=== PATIENT | female | born 1965 | race Caucasian/White ===

== ENCOUNTER 2017-03-25 16:30 | Emergency (ER) | payer BC ==
[2017-03-25 16:58] VITALS: BP 122/67; PULSE 93; RESP 20; TEMP 98.5; O2SAT 95
--- NOTE | 2017-03-25 19:36 | PD ---
HPI Chief Complaint: Abdominal Pain Time Seen by Provider: 19:25 Travel History International Travel<30 days: No Contact w/Intl Traveler<30days: No Traveled to known affect area: No History of Present Illness HPI Patient is a 51-year-old female complaining of right upper quadrant pain that is a constant squeezing feeling that started 24 hours ago. Is associated with vomiting. She took nothing for the pain. She reports having history of having similar symptoms a year ago had a HIDA scan had multiple workups and nothing was ever found. Her main complaint is constant right upper quadrant squeezing constant pain. She has not seen another doctor for this. And she did not take anything for her symptoms. She has a history of hypertension she is on Diovan/ Hydrocort thiazide. Patient also reports that she had endometrial ablation years ago. Has dysuria or any other complaint except for the squeezing constant pain in the right upper quadrant as well as the vomiting however today she was able to tolerate by mouth. PFSH Social History Tobacco Use: No Allergies-Medications (Allergen,Severity, Reaction): Coded Allergies: Iodinated Contrast- Oral and IV Dye (Verified Allergy, Severe, 03/25/17) nickel (Verified Allergy, Unknown, 03/25/17) polyvinyl chloride (PVC) (Verified Allergy, Unknown, 03/25/17) wool (Verified Allergy, Unknown, 03/25/17) Uncoded Allergies: ANTIINFLAMMATORIES (Allergy, Unknown, 03/25/17) Reported Meds & Prescriptions Reported Meds & Active Scripts Active Potassium Chloride ER (Potassium Chloride) 20 Meq Tab 20 Meq PO BID Flexeril (Cyclobenzaprine HCl) 10 Mg Tab 10 Mg PO BID Tramadol (Tramadol HCl) 50 Mg Tab 50 Mg PO Q6H PRN Reported Diovan Hct (Valsartan-Hydrochlorothiazide) 160-25 Mg Tab 1 Tab PO DAILY Tylenol-Codeine #3 (Acetaminophen-Codeine) 300-30 mg Tab 1 Tab PO Q4H PRN Baclofen 10 Mg Tab 10 Mg PO DAILY Diovan Hct (Valsartan-Hydrochlorothiazide) 160-25 Mg Tab 1 Tab PO DAILY Amoxicillin 500 Mg Tab 500 Mg PO BID Review of Systems Except as stated in HPI: all other systems reviewed are Neg Gastrointestinal: Positive: Abdominal Pain Musculoskeletal: Positive: Other (back pain) Physical Exam Narrative GENERAL: Awake alert nontoxic appearing nonjaundiced appearing in no distress SKIN: Warm and dry. HEAD: Atraumatic. Normocephalic. EYES: Pupils equal and round. No scleral icterus. No injection or drainage. ENT: No nasal bleeding or discharge. Mucous membranes pink and moist. NECK: Trachea midline. No JVD. CARDIOVASCULAR: Regular rate and rhythm. RESPIRATORY: No accessory muscle use. Clear to auscultation. Breath sounds equal bilaterally. GASTROINTESTINAL: Abdomen positive right upper quadrant tender, nondistended. Hepatic and splenic margins not palpable. MUSCULOSKELETAL: Extremities without clubbing, cyanosis, or edema. No obvious deformities. Back. She has focal tenderness on her paraspinal thoracic spine area around T 10 on the right side. She does not have CVA tenderness with percussion but very focal muscular-like pain on the right paraspinal thoracic area NEUROLOGICAL: Awake and alert. No obvious cranial nerve deficits. Motor grossly within normal limits. Five out of 5 muscle strength in the arms and legs. Normal speech. PSYCHIATRIC: Appropriate mood and affect; insight and judgment normal. Data Data Last Documented VS Vital Signs Date Time Temp Pulse Resp B/P (MAP) Pulse Ox O2 Delivery O2 Flow Rate FiO2 03/25/17 22:53 90 20 124/85 (98) 98 03/25/17 19:47 97.8 Room Air Orders Orders Urinalysis - C+S If Indicated (03/25/17 17:02) Complete Blood Count With Diff (03/25/17 19:36) Comprehensive Metabolic Panel (03/25/17 19:36) Lipase (03/25/17 19:36) Ketorolac Inj (Toradol Inj) (03/25/17 19:45) Diazepam (Valium) (03/25/17 20:30) Tramadol (Ultram) (03/25/17 20:30) Potassium Chloride (Kcl) (03/25/17 21:30) Potassium Chloride (Kcl) (03/25/17 21:30) Labs Laboratory Tests Test 03/25/17 20:18 03/25/17 20:44 White Blood Count 8.4 TH/MM3 Red Blood Count 4.36 MIL/MM3 Hemoglobin 11.9 GM/DL Hematocrit 36.7 % Mean Corpuscular Volume 84.3 FL Mean Corpuscular Hemoglobin 27.2 PG Mean Corpuscular Hemoglobin Concent 32.3 % Red Cell Distribution Width 12.6 % Platelet Count 399 TH/MM3 Mean Platelet Volume 7.7 FL Neutrophils (%) (Auto) 52.7 % Lymphocytes (%) (Auto) 36.8 % Monocytes (%) (Auto) 7.2 % Eosinophils (%) (Auto) 2.5 % Basophils (%) (Auto) 0.8 % Neutrophils # (Auto) 4.4 TH/MM3 Lymphocytes # (Auto) 3.1 TH/MM3 Monocytes # (Auto) 0.6 TH/MM3 Eosinophils # (Auto) 0.2 TH/MM3 Basophils # (Auto) 0.1 TH/MM3 CBC Comment DIFF FINAL Differential Comment Blood Urea Nitrogen 22 MG/DL Creatinine 0.79 MG/DL Random Glucose 127 MG/DL Total Protein 7.0 GM/DL Albumin 3.5 GM/DL Calcium Level 8.8 MG/DL Alkaline Phosphatase 100 U/L Aspartate Amino Transf (AST/SGOT) 26 U/L Alanine Aminotransferase (ALT/SGPT) 50 U/L Total Bilirubin 0.4 MG/DL Sodium Level 139 MEQ/L Potassium Level 2.9 MEQ/L Chloride Level 102 MEQ/L Carbon Dioxide Level 29.9 MEQ/L Anion Gap 7 MEQ/L Estimat Glomerular Filtration Rate 76 ML/MIN Lipase 150 U/L Urine Color YELLOW Urine Turbidity CLEAR Urine pH 6.0 Urine Specific [place] 1.021 Urine Protein NEG mg/dL Urine Glucose (UA) NEG mg/dL Urine Ketones NEG mg/dL Urine Occult Blood NEG Urine Nitrite NEG Urine Bilirubin NEG Urine Leukocyte Esterase NEG Urine WBC 0-2 /hpf Urine Squamous Epithelial Cells 0-5 /hpf Microscopic Urinalysis Comment CULT NOT INDICATED MDM Medical Decision Making Medical Screen Exam Complete: Yes Emergency Medical Condition: Yes Differential Diagnosis Patient complains of right upper quadrant pain which could be gallstones could be gastritis could be kidney stone could be muscle spasm could be nerve radiculopathy other Narrative Course Bedside sonogram [id number] done by this Ulises shows no gallstones she has a negative Colón's do not see gallstones I do not see any pericholecystic fluid Procedures Procedure Narrative Point of care bedside ultrasound shows no gallstones no pericholecystic fluid no signs of cholecystitis normal CBD as well as normal appearing gallbladder Diagnosis Primary Impression: Muscle spasm Additional Impressions: Right upper quadrant pain Hypokalemia Patient Instructions: Abdominal Pain (ED), General Instructions Scripts Potassium Chloride ER (Potassium Chloride ER) 20 Meq Tab 20 MEQ PO BID for Electrolyte Replacement, #20 TAB 0 Refills Prov: Daryn Howell MD 03/25/17 Cyclobenzaprine (Flexeril) 10 Mg Tab 10 MG PO BID for Muscle Spasm, #10 TAB 0 Refills Prov: Daryn Howell MD 03/25/17 Tramadol (Tramadol) 50 Mg Tab 50 MG PO Q6H Y for PAIN, #10 TAB 0 Refills Prov: Daryn Howell MD 03/25/17 Condition: Good Daryn Howell MD Mar 25, 2017 19:36
[2017-03-25] MEDS ORDERED: KETOROLAC TROMETHAMINE 60 MG/2 ML (IM) VIAL IM ONE (19:45)
[2017-03-25 19:47] VITALS: BP 119/73; PULSE 80; RESP 16; TEMP 97.8; O2SAT 100
[2017-03-25] MEDS ORDERED: TYLETAB34 PO (20:01)
[2017-03-25] MEDS ORDERED: DIOV160T9 PO (20:01)
[2017-03-25] MEDS ORDERED: AMOX500T PO (20:01)
[2017-03-25] MEDS ORDERED: BACL10TA PO (20:01)
[2017-03-25 20:29] LABS: AUTOMATED NEUTROPHIL # 4.4 TH/MM3 (1.8-7.7); BASOPHIL # 0.1 TH/MM3 (0-0.2); BASOPHIL % 0.8 % (0.0-2.0); EOSINOPHIL # 0.2 TH/MM3 (0-0.4); EOSINOPHIL % 2.5 % (0.0-4.0); HEMATOCRIT 36.7 % (35.0-46.0); HEMOGLOBIN 11.9 GM/DL (11.6-15.3); LYMPH % 36.8 % (9.0-44.0); LYMPHOCYTE # 3.1 TH/MM3 (1.0-4.8); MEAN CELL VOLUME 84.3 FL (80.0-100.0); MEAN CORPUSCULAR HEMOGLOBIN 27.2 PG (27.0-34.0); MEAN CORPUSCULAR HGB CONC 32.3 % (32.0-36.0); MEAN PLATELET VOLUME 7.7 FL (7.0-11.0); MONO % 7.2 % (0.0-8.0); MONOCYTE # 0.6 TH/MM3 (0-0.9); NEUT % 52.7 % (16.0-70.0); PLATELET COUNT 399 TH/MM3 (150-450); RED BLOOD COUNT 4.36 MIL/MM3 (4.00-5.30); RED CELL DISTRIBUTION WIDTH 12.6 % (11.6-17.2); WHITE BLOOD COUNT 8.4 TH/MM3 (4.0-11.0)
[2017-03-25] MEDS ORDERED: traMADol HCL 50 MG TAB PO ONE (20:30)
[2017-03-25] MEDS ORDERED: DIAZEPAM 5 MG TAB PO ONE (20:30)
[2017-03-25] MEDS ORDERED: CYCL10TA PO (20:42)
[2017-03-25] MEDS ORDERED: TRAM50TA PO (20:42)
[2017-03-25 20:49] LABS: BILIRUBIN, URINE NEG (NEG); BLOOD, URINE NEG (NEG); GLUCOSE,URINE NEG (NEG); KETONE, URINE NEG (NEG); NITRITE,URINE NEG (NEG); URINE LEUKOCYTE ESTERASE NEG (NEG)
[2017-03-25 20:54] LABS: URINE COLOR YELLOW (YELLW/STRAW)
[2017-03-25 20:55] LABS: SQUAMOUS EPITHELIAL CELL URINE 0-5 /hpf (0-5); WBC, URINE 0-2 /hpf (0-5)
[2017-03-25 21:03] LABS: ALBUMIN 3.5 GM/DL (3.4-5.0); ALKALINE PHOSPHATASE 100 U/L (45-117); ALT (GPT) 50 U/L (10-53); AST (GOT) 26 U/L (15-37); BICARBONATE 29.9 MEQ/L (21.0-32.0); BLOOD UREA NITROGEN 22 MG/DL (7-18); CALCIUM 8.8 MG/DL (8.5-10.1); CHLORIDE 102 MEQ/L (98-107); CREATININE 0.79 MG/DL (0.50-1.00); GLOMERULAR FILTRATION RATE 76 ML/MIN (>89); GLUCOSE,RANDOM 127 MG/DL (74-106); LIPASE 150 U/L (73-393); SODIUM (NA) 139 MEQ/L (136-145); TOTAL BILIRUBIN ADULT 0.4 MG/DL (0.2-1.0)
[2017-03-25] MEDS ORDERED: POTASSIUM CHLORIDE 20 MEQ CONTROLLED RELEASE TAB PO ONE ×2 (21:30)
[2017-03-25] MEDS ORDERED: POTA-163 PO (22:08)
[2017-03-25 22:53] VITALS: BP 124/85
== END 2017-03-25 22:55 | disposition home or self-care (01) ==
LOC: PHED 16:30
DX: M62.838 Other muscle spasm (principal); R10.11 Right upper quadrant pain; E87.6 Hypokalemia
CPT/HCPCS: 80053; 81001; 83690; 85025